=== PATIENT | male | born 1935 | race Caucasian/White ===

== ENCOUNTER 2016-07-21 09:30 | Outpatient (RCR) | payer MEDICARE | END 2016-08-18 | disposition home or self-care (01) | LOC: PTY 09:30 | DX: M19.90 Unspecified osteoarthritis, unspecified site (principal); M62.81 Muscle weakness (generalized); I10 Essential (primary) hypertension | CPT/HCPCS: 97110; 97140; G0283; G8978; G8979; G8980 ==

== ENCOUNTER 2017-01-07 10:00 | Outpatient (RCR) | payer MEDICARE | END 2017-01-15 | disposition home or self-care (01) | LOC: PTY 10:00 | DX: M54.32 Sciatica, left side (principal); I10 Essential (primary) hypertension; M17.12 Unilateral primary osteoarthritis, left knee; M16.12 Unilateral primary osteoarthritis, left hip | CPT/HCPCS: 97110; 97161; G0283; G8978; G8979 ==

== ENCOUNTER 2017-01-25 13:25 | Outpatient (RCR) | payer MEDICARE | END 2017-02-15 | disposition home or self-care (01) | LOC: PTY 13:25 | DX: M54.32 Sciatica, left side (principal) | CPT/HCPCS: 97110; G0283 ==

== ENCOUNTER → 2017-03-18 | Outpatient (RCR) | payer MEDICARE | END | disposition home or self-care (01) | LOC: PTY 02-23 08:15 | DX: M62.81 Muscle weakness (generalized) (principal); I10 Essential (primary) hypertension; M17.12 Unilateral primary osteoarthritis, left knee; M16.12 Unilateral primary osteoarthritis, left hip; M54.2 Cervicalgia | CPT/HCPCS: 97110; G0283; G8978; G8979 ==